=== PATIENT | male | born 1955 | race Hispanic/Latino ===

== ENCOUNTER → 2022-05-04 | Outpatient (CLI) | payer MEDICARE, MEDICAID | END | disposition home or self-care (01) | LOC: RAH 10:00 | PROVIDERS: ATTEND Internal Medicine | DX: M47.16 Other spondylosis with myelopathy, lumbar region (principal); M48.061 Spinal stenosis, lumbar region without neurogenic claudication; G95.9 Disease of spinal cord, unspecified; M62.562 Muscle wasting and atrophy, not elsewhere classified, left lower leg | CPT/HCPCS: 72148 ==

== ENCOUNTER 2022-07-17 13:00 | Observation (INO) | payer MEDICARE ==
[~2022-07-17] VITALS: Ht 167.6 cm; Wt 80.6 kg
[2022-07-17 09:36] VITALS: BP 146/73
[2022-07-17 09:38] LABS: BASOPHILS % (AUTO) 0.3 % (0.0-5.0); EOSINOPHILS % (AUTO) 1.6 % (0.0-8.0); MEAN CORPUSCULAR HEMOGLOBIN 31.3 pg (27.0-33.0); MEAN CORPUSCULAR HGB CONC 32.6 g/dL (32.0-36.0); MEAN CORPUSCULAR VOLUME 96.1 fL (79-99); MONOCYTES % (AUTO) 6.4 % (3.0-13.0); NEUTROPHILS % (AUTO) 65.3 % (40.0-77.0); PLATELET COUNT (AUTO) 196 K/uL (130-400); RED BLOOD CELL COUNT(AUTO) 4.06 MIL/uL (4.50-6.20); RED CELL DISTRIBUTION WIDTH 14.6 % (11.0-15.5); WHITE BLOOD COUNT (AUTO) 7.4 K/uL (4.8-10.8)
[2022-07-17 09:41] LABS: CREATININE 0.9 mg/dL (0.5-1.5); POTASSIUM 4.6 mmol/L (3.5-5.1)
[~2022-07-17 13:00] MED LIST: ROSU5TAB PO
[2022-07-20] VITALS (16 sets, daily range): BP systolic 102–138; BP diastolic 54–83
[2022-07-20] MEDS ORDERED: 0.9%NACL 1000ML 1,000 ML IV ONE (06:12)
[2022-07-20 06:18] LABS: BASOPHILS % (AUTO) 0.5 % (0.0-5.0); EOSINOPHILS % (AUTO) 1.9 % (0.0-8.0); HEMATOCRIT 38.2 % (42-54); LYMPHOCYTES % (AUTO) 53.8 % (21.0-51.0); MEAN CORPUSCULAR HEMOGLOBIN 31.3 pg (27.0-33.0); MEAN CORPUSCULAR VOLUME 94.8 fL (79-99); MONOCYTES % (AUTO) 9.5 % (3.0-13.0); NEUTROPHILS % (AUTO) 34.1 % (40.0-77.0); PLATELET COUNT (AUTO) 197 K/uL (130-400); RED BLOOD CELL COUNT(AUTO) 4.03 MIL/uL (4.50-6.20); RED CELL DISTRIBUTION WIDTH 14.3 % (11.0-15.5); WHITE BLOOD COUNT (AUTO) 8.5 K/uL (4.8-10.8)
[2022-07-20] MEDS: CEFAZOLIN SODIUM 2 GM VIAL ONE ×2 (06:26→08:00)
[2022-07-20] MEDS ORDERED: SUCCINYLCHOLINE CHLORIDE 20 MG/ML 10 ML VIAL ONE (06:47)
[2022-07-20] MEDS ORDERED: LIDOCAINE PF 100MG/5ML (2%) SYRINGE 5ML ONE (06:47)
[2022-07-20] MEDS ORDERED: MIDAZOLAM HCL 1 MG/ML 2ML VIAL ONE (06:48)
[2022-07-20] MEDS ORDERED: DEXAMETHASONE SOD PHOSPHATE 10MG/ML 1ML VIAL ONE ×2 (06:48→06:56)
[2022-07-20] MEDS ORDERED: GLYCOPYRROLATE 1 MG/5 ML SYRINGE ONE (06:48)
[2022-07-20] MEDS ORDERED: PROPOFOL 10 MG/ML 20ML VIAL IV ONE (06:48)
[2022-07-20] MEDS ORDERED: FENTANYL CITRATE PF 50 MCG/1 ML 2ML VIAL ONE ×3 (06:49→09:16)
[2022-07-20] MEDS ORDERED: ONDANSETRON 4MG INJ ONE ×2 (06:49→07:23)
[2022-07-20] MEDS ORDERED: ROCURONIUM 10MG/1ML SYR 10 MG/ML ML ONE (06:49)
[2022-07-20] MEDS ORDERED: NEOSTIGMINE 5MG/5ML SYR IV ONE (06:49)
[2022-07-20] MEDS ORDERED: CEFAZOLIN SODIUM 1 GM VIAL ONE (06:51)
[2022-07-20] MEDS ORDERED: THROMBIN-JMI 20000 UNIT KIT TP ONE (07:00)
[2022-07-20] MEDS: BUPIVACAINE/EPI/PF 0.25% 30ML VIAL IJ SCH ×3 (07:00→18:20)
[2022-07-20] MEDS ORDERED: PROPOFOL 1000 MG/100 ML 100 ML IV ONE (07:03)
[2022-07-20] MEDS ORDERED: ARTIFICIAL TEARS 3.5 GM OINTMENT ONE (08:15)
[2022-07-20] MEDS ORDERED: NALOXONE HCL 0.4 MG/1 ML ML ONE (10:21)
[2022-07-20] MEDS ORDERED: MORPHINE 2 MG SYG IVP PRN (10:30)
[2022-07-20] MEDS ORDERED: LACTATED RINGERS 1000ML 1,000 ML IV SCH (10:30)
[2022-07-20] MEDS ORDERED: HYDROCODONE/ACETAMINOPHEN 5/325 MG TAB PO PRN (10:30)
[2022-07-20] MEDS ORDERED: CEFAZOLIN SODIUM 1 GM VIAL IVPB SCH ×2 (10:30→16:30)
[2022-07-20] MEDS ORDERED: 0.9%NACL 10ML VIAL IVP PRN (10:30)
[2022-07-20] MEDS ORDERED: PROMETHAZINE HCL 25 MG/ML 1ML AMPULE IM PRN (10:30)
[2022-07-20] MEDS: DEXAMETHASONE SOD PHOSPHATE 4 MG/ML 1ML VIAL IVP SCH ×3 (16:30→22:33)
[2022-07-20] MEDS ORDERED: NON-FORMULARY MEDICATION 1 EACH (Rosuvastatin Calcium (Crestor) 5 MG) PO SCH (21:00)
[2022-07-20] MEDS ORDERED: ATORVASTATIN 20 MG TABLET PO SCH (21:00)
[2022-07-21] VITALS: BP 142/71
[2022-07-21 04:00] VITALS: BP 116/67
[2022-07-21] MEDS: DEXAMETHASONE SOD PHOSPHATE 4 MG/ML 1ML VIAL IVP SCH ×2 (04:03→10:30)
[2022-07-21 08:01] VITALS: BP 129/60
== END 2022-07-21 11:20 | disposition home or self-care (01) ==
LOC: DAHIP 07-20 05:33 → 4BH 07-20 11:45 → EDSTATUS 07-20 13:00
PROVIDERS: ADMIT Neurological Surgery; ATTEND Neurological Surgery
DX: M54.12 Radiculopathy, cervical region (principal); Z20.822 Contact with and (suspected) exposure to COVID-19; E11.9 Type 2 diabetes mellitus without complications; E78.5 Hyperlipidemia, unspecified; M48.061 Spinal stenosis, lumbar region without neurogenic claudication; M48.02 Spinal stenosis, cervical region; M25.78 Osteophyte, vertebrae; M54.10 Radiculopathy, site unspecified; G99.2 Myelopathy in diseases classified elsewhere; Z98.1 Arthrodesis status; Z79.899 Other long term (current) drug therapy; Z98.890 Other specified postprocedural states
CPT/HCPCS: 80048; 85025 ×2; 87426; 36415 ×2; 71045; 22551; 22853; 20930; 96374; 96376 ×2; 96375; 82948 ×4; 72020; A6260; J1100 ×5; G0378 ×23; A4663; J7030 ×2; A4344; J3010 ×3; J0690 ×3; J2310; J3490 ×4; J2710; J0330; J2001; J2250; J2704 ×2; J2405 ×2; A4649 ×2; C1889; A4215; A4223; A4222; A4221; A4600 ×2; A4510

== ENCOUNTER → 2022-08-18 | Outpatient (CLI) | payer MEDICARE | END | disposition home or self-care (01) | LOC: RAH 08:51 | PROVIDERS: ATTEND Neurological Surgery | DX: M43.22 Fusion of spine, cervical region (principal); M47.812 Spondylosis without myelopathy or radiculopathy, cervical region | CPT/HCPCS: 72040 ==

== ENCOUNTER → 2024-04-15 | Outpatient (CLI) | payer OTHER, MEDICARE ==
--- NOTE | 2024-04-15 10:06 | HMCIMG ---
ULTRASOUND ABDOMEN COMPLETE INDICATION: Hernia with gangrene COMPARISON: None. FINDINGS: The liver is normal in size and echogenicity; no focal lesion demonstrated. Main portal vein is patent, and normal direction of vascular flow demonstrated. The common bile duct caliber measures 6.0 mm. No evidence for calculi, sludge or pericholecystic fluid. 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 Wall thickness measures 2.0 mm. Spleen is obscured by overlying bowel gas Visible portions of the pancreas appear unremarkable. The right kidney measures 11.3 x 5.2 x 5.5 cm,and is normal in echogenicity, without evidence for hydronephrosis or shadowing stones. The left kidney measures 11.2 x 6.3 x 5.5 cm,and is normal in echogenicity, without evidence for hydronephrosis or shadowing stones. Visible portions of the abdominal aorta are within normal limits. Visible portions of the inferior vena cava are within normal limits. No free fluid demonstrated. No midabdominal or left lower abdominal abnormality demonstrated. IMPRESSION: Limitations as reported. No acute upper abdominal abnormality identified, including no hernia demonstrated.
== END | disposition home or self-care (01) ==
LOC: RAH 08:10
PROVIDERS: ATTEND Internal Medicine
DX: K45.8 Other specified abdominal hernia without obstruction or gangrene (principal)
CPT/HCPCS: 76700

== ENCOUNTER → 2024-08-14 | Outpatient (CLI) | payer OTHER ==
[~2024-08-14] MED LIST changes: +IOHEXOL 350 MG/ML 100ML INFUS..BTL IV ONE
--- NOTE | 2024-08-15 12:39 | CARDIOLOGY ---
RAD REPORT: [facility] CT ANGIO RADIOLOGY REPORT: CORONARY CT ANGIOGRAPHY DATE: Aug 14, 2024 QUALITY: Excellent CLINICAL HISTORY AND INDICATION: [ chest pain ] TECHNIQUE: After obtaining a preliminary eyeglass lens cutter image, contrast imaging performed on an [employer] [id number] scanner. A dedicated, limited window, coronary imaging protocol was used, with single breath-hold, retrospective ECG gating, and automated arrhythmia rejection. 100 cc of low osmolar contrast agent: Omnipaque 350 was delivered via a 18-gauge IV catheter in the right antecubital fossa, using a power injector and followed by 60 cc of normal saline bolus as a chaser. Collimated images were reformatted at 0.5 mm intervals, and sent to an offline independent workstation for interpretation, using 3D anatomic reconstructions: Curved multiplanar reconstructions, maximum intensity projections, and multiplanar imaging. No metoprolol was administered prior to scanning due to low baseline heart rate. 0.4 mg SL nitroglycerin was given. CORONARY ARTERY DESCRIPTIONS: The coronary arteries arise in normal position. Left main coronary artery: Normal caliber vessel that bifurcates into the LAD and LCx. No stenosis. Left anterior descending coronary artery: Normal caliber vessel and gives rise to diagonal and septal branches. There is mixed calcified and noncalcified plaque in the proximal LAD with 30-40% stenosis. Left circumflex coronary artery: Normal caliber, nondominant and gives rise to a large OM branch. There is a high risk plaque in the proximal LCx with positive remodeling and spotty calcification with 30-40% stenosis. Right coronary artery: Large, dominant vessel giving rise to the PL and PDA branches. There is mixed calcified and noncalcified plaque in the mid RCA with 20-30% stenosis. CAD-RADs: 2, mild non-obstructive CAD. Given HRP (high risk plaque) recommend aggressive lipid lowering therapy, consider Vascepa 2g bid. Thoracic Aorta: Normal diameter. Zelda Hart MD Cardiovascular Disease [facility] ZELDA HART MD Aug 15, 2024 12:39
--- NOTE | 2024-08-15 15:15 | HMCIMG ---
EXAM: CT Cardiac Angiogram. CLINICAL HISTORY: Chest pain. TECHNIQUE: Thin collimated axial CT cardiac angiogram images were obtained. A CT scan is done according to ALARA (As Low As Reasonably Achievable). COMPARISON: None provided. FINDINGS: Coronary CT Angiography: Dominance of the coronary artery system: Right Left Main: The left main is a normal caliber vessel that gives rise to the LAD and circumflex arteries. The left main has no stenosis or plaques. Left Anterior Descending Artery /T/ Diagonals: Multiple moderate eccentric calcifications in the proximal LAD causing moderate narrowing of up to 50%. The first diagonal branch has no stenosis or plaques. The mid and distal LAD appear normal. LAD is a type II vessel. Left Circumflex Artery /T/ Obtuse Marginals: Foci of eccentric calcifications in the proximal left circumflex artery causing mild narrowing of up to 20%. The rest of the left circumflex artery and its obtuse marginal branches (OM1) have no stenosis or plaques. Right Coronary Artery: There are foci of small eccentric calcifications in the proximal RCA, causing mild narrowing of up to 10%. The rest of the right coronary artery and the acute marginal are normal in course and show no plaques or stenosis. RCA is a dominant artery. The right posterior descending artery and right posterolateral branches have no stenosis or plaques. Cardiac Morphology:Both atria and ventricles are normal. The mitral valve leaflets are normal. The pericardium is normal, and there is no pericardial effusion. The aortic valve is tricuspid. Prominent ascending aorta measuring 3.8 cm. Extracardiac findings:The visualised pulmonary arteries appear normal in caliber. The visualised lung parenchyma is unremarkable. The included portion of the upper abdomen appears normal. Impression: 1. Coronary artery disease as described. CADRADS 3. 2. Right Dominant Circulation. 3. Prominent ascending aorta. /[place]
== END | disposition home or self-care (01) ==
LOC: RAH 07:56
PROVIDERS: ATTEND Internal Medicine
DX: I25.10 Atherosclerotic heart disease of native coronary artery without angina pectoris (principal); R07.89 Other chest pain
CPT/HCPCS: 75574; Q9967